=== PATIENT | female | born 1995 | race Asian ===

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

== ENCOUNTER 2018-12-23 21:42 | Emergency (ER) | payer OTHER ==
[~2018-12-23] VITALS: Ht 170.2 cm; Wt 56.7 kg
[~2018-12-23 21:42] MED LIST: PRENATAL PO; PROM25TA52 PO; [UNRECOGNIZED DRUG - OTHER] PO
[2018-12-23 22:40] VITALS: BP 123/86; TEMP 97.5
== END 2018-12-23 22:42 | disposition home or self-care (01) ==
LOC: ED 21:42
DX: G43.909 Migraine, unspecified, not intractable, without status migrainosus (principal)
CPT/HCPCS: 93005; 96372; 99283; J1200; J1885; J2405

== ENCOUNTER 2019-01-02 11:57 | Emergency (ER) | payer OTHER ==
[~2019-01-02] VITALS: Ht 170.2 cm; Wt 57.2 kg
[2019-01-02 12:04] VITALS: BP 120/74; TEMP 97.9
[2019-01-02 12:38] LABS: PLATELET COUNT 286 K/uL (152-353)
[2019-01-02 12:46] LABS: POTASSIUM 3.8 mmol/L (3.6-5.2)
== END 2019-01-02 13:55 | disposition home or self-care (01) ==
LOC: ED 11:57
PROVIDERS: Emergency Medicine
DX: R11.2 Nausea with vomiting, unspecified (principal); R51 Headache
CPT/HCPCS: 36415; 80053; 80307; 80320; 85027; 96360; 96365; 96367; 96375; 99284; J2405

== ENCOUNTER 2019-03-08 15:21 | Outpatient (CLI) | payer OTHER | END 2019-03-08 20:02 | disposition home or self-care (01) | LOC: RAD 15:21 | DX: S29.9XXA Unspecified injury of thorax, initial encounter (principal); S49.92XA Unspecified injury of left shoulder and upper arm, initial encounter; S79.922A Unspecified injury of left thigh, initial encounter; S89.92XA Unspecified injury of left lower leg, initial encounter; V87.7XXA Person injured in collision between other specified motor vehicles (traffic), initial encounter ==

== ENCOUNTER 2019-10-13 11:41 | Emergency (ER) | payer OTHER ==
[~2019-10-13] VITALS: Ht 170.2 cm; Wt 63.5 kg
[2019-10-13 11:41] VITALS: TEMP 98.1
[2019-10-13 12:52] VITALS: BP 130/80
== END 2019-10-13 12:53 | disposition home or self-care (01) ==
LOC: ED 11:41
DX: S91.312A Laceration without foreign body, left foot, initial encounter (principal); W25.XXXA Contact with sharp glass, initial encounter; Y92.095 Swimming-pool of other non-institutional residence as the place of occurrence of the external cause
CPT/HCPCS: 90471; 90715; 96372; 99283; J0696

== ENCOUNTER 2019-11-04 13:26 | Emergency (ER) | payer OTHER ==
[~2019-11-04] VITALS: Ht 170.2 cm; Wt 64.0 kg
[2019-11-04 14:52] LABS: POTASSIUM 3.5 mmol/L (3.6-5.2)
[2019-11-04 14:53] LABS: PLATELET COUNT 225 K/uL (152-353)
[2019-11-04 16:25] VITALS: BP 123/76; TEMP 97.8
== END 2019-11-04 16:25 | disposition home or self-care (01) ==
LOC: ED 13:26
PROVIDERS: Hospitalist
DX: O23.40 Unspecified infection of urinary tract in pregnancy, unspecified trimester (principal)
CPT/HCPCS: 36415; 80053; 81000; 81025; 82150; 83690; 84702; 85027; 87077; 87086; 87088; 87186; 96360; 96365; 96375; 99284; J0696; J1885; J2405

== ENCOUNTER 2019-12-08 00:04 | Emergency (ER) | payer OTHER ==
[~2019-12-08] VITALS: Ht 172.7 cm; Wt 65.8 kg
[2019-12-08 01:29] LABS: PLATELET COUNT 228 K/uL (152-353)
[2019-12-08 01:47] LABS: POTASSIUM 3.5 mmol/L (3.6-5.2)
[2019-12-08 03:05] VITALS: BP 115/67; TEMP 98.9
== END 2019-12-08 03:05 | disposition home or self-care (01) ==
LOC: ED 00:04
PROVIDERS: General Practice
DX: R11.10 Vomiting, unspecified (principal); R19.7 Diarrhea, unspecified; Z03.818 Encounter for observation for suspected exposure to other biological agents ruled out
CPT/HCPCS: 36415; 80053; 81000; 83605; 83690; 83735; 84702; 85027; 87635; 96360; 99284; U00003

== ENCOUNTER 2019-12-25 15:11 | Emergency (ER) | payer OTHER ==
[~2019-12-25] VITALS: Ht 172.7 cm; Wt 65.8 kg
[2019-12-25 15:49] LABS: PLATELET COUNT 243 K/uL (152-353)
[2019-12-25 15:55] LABS: POTASSIUM 3.6 mmol/L (3.6-5.2)
[2019-12-25 17:16] VITALS: BP 112/70; TEMP 97
== END 2019-12-25 17:26 | disposition home or self-care (01) ==
LOC: ED 15:11
PROVIDERS: Emergency Medicine
DX: O21.0 Mild hyperemesis gravidarum (principal)
CPT/HCPCS: 80053; 81025; 84702; 85027; 99283; J2550

== ENCOUNTER 2019-12-30 10:12 | Emergency (ER) | payer OTHER ==
[~2019-12-30] VITALS: Ht 170.2 cm; Wt 61.2 kg
[2019-12-30 11:01] LABS: PLATELET COUNT 253 K/uL (152-353)
[2019-12-30 11:16] LABS: PARTIAL THROMBOPLASTIN TIME 30.1 SECONDS (24.5-33.6)
[2019-12-30 13:20] VITALS: BP 104/61; TEMP 98.8
== END 2019-12-30 13:20 | disposition home or self-care (01) ==
LOC: ED 10:12
PROVIDERS: Hospitalist
DX: Z3A.01 Less than 8 weeks gestation of pregnancy (principal); R11.2 Nausea with vomiting, unspecified
CPT/HCPCS: 36415; 80053; 81000; 83690; 84702; 85027; 85610; 85730; 96360; 96375; 99284; J2405

== ENCOUNTER 2020-04-01 15:05 | Emergency (ER) | payer OTHER ==
[~2020-04-01] VITALS: Ht 170.2 cm; Wt 59.0 kg
[2020-04-01 15:49] VITALS: BP 122/80; TEMP 97.7
== END 2020-04-01 15:53 | disposition home or self-care (01) ==
LOC: ED 15:05
DX: Z33.1 Pregnant state, incidental (principal); W18.2XXA Fall in (into) shower or empty bathtub, initial encounter; Y92.89 Other specified places as the place of occurrence of the external cause
CPT/HCPCS: 99282; 99284

== ENCOUNTER 2020-11-29 10:27 | Emergency (ER) | payer OTHER ==
[~2020-11-29] VITALS: Ht 170.2 cm; Wt 59.0 kg
[2020-11-29 10:31] VITALS: BP 122/93; TEMP 98.8
== END 2020-11-29 12:56 | disposition home or self-care (01) ==
LOC: ED 10:27
DX: Z20.822 Contact with and (suspected) exposure to COVID-19 (principal)
CPT/HCPCS: 87635; 99282; U0003

== ENCOUNTER 2020-12-07 13:16 | Emergency (ER) | payer OTHER ==
[~2020-12-07] VITALS: Ht 170.2 cm; Wt 59.0 kg
[2020-12-07 13:35] VITALS: TEMP 97.8
[2020-12-07 15:29] LABS: PLATELET COUNT 244 K/uL (152-353)
[2020-12-07 16:10] VITALS: BP 142/84
== END 2020-12-07 16:10 | disposition home or self-care (01) ==
LOC: ED 13:16
PROVIDERS: Hospitalist
DX: B34.9 Viral infection, unspecified (principal); R11.2 Nausea with vomiting, unspecified; R19.7 Diarrhea, unspecified
CPT/HCPCS: 80048; 81000; 81025; 85027; 99283

== ENCOUNTER 2021-01-04 06:47 | Emergency (ER) | payer OTHER ==
[~2021-01-04] VITALS: Ht 170.2 cm; Wt 59.0 kg
[2021-01-04 07:06] VITALS: BP 125/88; TEMP 97.1
[2021-01-04 07:45] LABS: PLATELET COUNT 234 K/uL (152-353)
--- NOTE | 2021-01-08 10:26 | NUR ---
1026- PATIENT NOTIFIED OF COVID TEST RESULTS. PT VERBALIZES UNDERSTANDING, NO ADDITIONAL QUESTIONS.
== END 2021-01-04 08:53 | disposition still patient (30) ==
LOC: ED 06:47
PROVIDERS: Hospitalist
DX: R53.1 Weakness (principal); R11.2 Nausea with vomiting, unspecified; R53.81 Other malaise; Z20.822 Contact with and (suspected) exposure to COVID-19
CPT/HCPCS: 80048; 81000; 81025; 85027; 87635; 96360; 96375; 99284; J2405; U0003

== ENCOUNTER 2021-01-19 13:54 | Emergency (ER) | payer OTHER ==
[~2021-01-19] VITALS: Ht 170.2 cm; Wt 61.2 kg
[2021-01-19 14:33] VITALS: TEMP 98.1
[2021-01-19 17:43] VITALS: BP 118/71
== END 2021-01-19 17:44 | disposition home or self-care (01) ==
LOC: ED 13:54
DX: O21.9 Vomiting of pregnancy, unspecified (principal)
CPT/HCPCS: 81000; 81025; 96372; 99284; J2405

== ENCOUNTER 2021-01-23 08:42 | Emergency (ER) | payer OTHER ==
[~2021-01-23] VITALS: Ht 170.2 cm; Wt 63.5 kg
[2021-01-23 09:41] LABS: PLATELET COUNT 251 K/uL (152-353)
[2021-01-23 09:52] LABS: POTASSIUM 3.5 mmol/L (3.6-5.2)
[2021-01-23 11:25] VITALS: BP 121/79; TEMP 97.6
== END 2021-01-23 11:25 | disposition home or self-care (01) ==
LOC: ED 08:42
PROVIDERS: Emergency Medicine Emergency Medical Services
DX: O20.0 Threatened abortion (principal)
CPT/HCPCS: 80053; 81000; 84702; 85027; 86900; 86901; 99284

== ENCOUNTER 2021-05-21 12:22 | Emergency (ER) | payer OTHER ==
[~2021-05-21] VITALS: Ht 170.2 cm; Wt 64.4 kg
[2021-05-21 13:30] VITALS: BP 110/59; TEMP 97.9
== END 2021-05-21 13:30 | disposition home or self-care (01) ==
LOC: ED 12:22
DX: U07.1 COVID-19 (principal)
CPT/HCPCS: 87635; 99282; U0003